=== PATIENT | female | born 1970 | race Caucasian/White ===

== ENCOUNTER 2017-04-18 07:23 | Day surgery (SDC) | payer OTHER ==
[~2017-04-18] VITALS: Ht 154.9 cm; Wt 82.6 kg
[2017-04-18] MEDS ORDERED: ROCURONIUM BROMIDE 10 MG/ML (ZEMURON) IV ONE (08:50)
[2017-04-18] MEDS ORDERED: LR 1,000 ML IV.SOLN IV ONE (08:50)
[2017-04-18] MEDS ORDERED: KETOROLAC TROMETHAMINE 30 MG VIAL IVP ONE (08:50)
[2017-04-18] MEDS ORDERED: fentaNYL CITRATE/PF 100 MCG/2 ML AMP IVP ONE (08:50)
[2017-04-18] MEDS ORDERED: ONDANSETRON HCL 4 MG/2 ML VIAL IVP ONE (08:50)
[2017-04-18] MEDS ORDERED: MIDAZOLAM HCL 5 MG/5 ML VIAL IVP ONE (08:50)
[2017-04-18] MEDS ORDERED: SEVOFLURANE 15 MIN GAS INH ONE (08:50)
[2017-04-18] MEDS ORDERED: LR 1,000 ML IV SCH (09:33)
[2017-04-18] MEDS ORDERED: ONDANSETRON HCL 4 MG/2 ML VIAL IVP PRN (09:45)
[2017-04-18] MEDS ORDERED: PROMETHAZINE HCL 25 MG/ML AMP IM PRN ×2 (09:45)
[2017-04-18] MEDS ORDERED: METOCLOPRAMIDE HCL 10 MG/2 ML VIAL IVP PRN (09:45)
[2017-04-18] MEDS ORDERED: OXYCODONE/ACETAMINOPHEN 5-325 TABLET PO PRN ×2 (09:45)
[2017-04-18] MEDS ORDERED: IBUPROFEN 600 MG TABLET PO PRN (09:45)
[2017-04-18] MEDS ORDERED: MEPERIDINE HCL/PF 25 MG/ML DISP.SYRIN IVP PRN (09:45)
[2017-04-18] MEDS ORDERED: MEPERIDINE HCL/PF 50 MG/ML AMP IVP PRN ×2 (09:45)
[2017-04-18] MEDS ORDERED: OXYCODONE/ACETAMINOPHEN 5-325 TABLET ONE (11:08)
[2017-04-18 11:22] VITALS: BP_SYST 152
== END 2017-04-18 11:30 | disposition home or self-care (01) ==
LOC: SDS 07:23 → SMU 07:24 → SDS 11:30
PROVIDERS: ATTEND Obstetrics & Gynecology
DX: D25.9 Leiomyoma of uterus, unspecified (principal); E78.5 Hyperlipidemia, unspecified; Z90.49 Acquired absence of other specified parts of digestive tract; Z83.3 Family history of diabetes mellitus; Z82.49 Family history of ischemic heart disease and other diseases of the circulatory system; Z68.33 Body mass index [BMI] 33.0-33.9, adult; I10 Essential (primary) hypertension; E66.01 Morbid (severe) obesity due to excess calories; E11.9 Type 2 diabetes mellitus without complications
CPT/HCPCS: 36415; 58563; 86886; 86900; 86901; 88305; J1885; J2250; J2405; J3010; J7120